=== PATIENT | female | born 1970 | race Caucasian/White ===

== ENCOUNTER 2017-11-03 05:33 | Day surgery (SDC) | payer OTHER ==
--- NOTE | 2017-11-01 10:53 | EKG REPORT ---
SEVERITY:- NORMAL ECG - SINUS RHYTHM : Confirmed by: Ashleigh Stiles 01-Nov-2017 10:53:13
[2017-11-01 12:12] LABS: HEMATOCRIT 40.4 % (36.0-47.0); HEMOGLOBIN 13.2 g/dL (12.0-15.5); HGB HCT DIFFERENCE -0.8; MEAN CORPUSCULAR HEMOGLOBIN 27.6 pg (27.0-33.4); MEAN CORPUSCULAR HGB CONC 32.6 g/dL (32.0-36.0); MEAN CORPUSCULAR VOLUME 85 fl (80-97); RED BLOOD COUNT 4.77 10^6/uL (3.72-5.28); RED CELL DISTRIBUTION WIDTH 14.5 % (11.5-14.0); WHITE BLOOD COUNT 12.4 10^3/uL (4.0-10.5)
[2017-11-01 12:38] LABS: APPEARANCE,URINE CLEAR; BILIRUBIN,URINE NEGATIVE (NEGATIVE); GLUCOSE, URINE NEGATIVE (NEGATIVE); KETONES,URINE NEGATIVE (NEGATIVE); LEUKOCYTE ESTERASE,URINE NEGATIVE (NEGATIVE); NITRITE,URINE NEGATIVE (NEGATIVE); PROTEIN,URINE NEGATIVE (NEGATIVE); UROBILINOGEN,URINE NEGATIVE mg/dL (<2.0)
--- NOTE | 2017-11-01 12:42 | RADIOLOGY REPORT (SQ) ---
EXAM DESCRIPTION: CHEST PA/LATERAL COMPLETED DATE/TIME: 11/01/2017 12:27 pm REASON FOR STUDY: PRE-OP COMPARISON: None. EXAM PARAMETERS: NUMBER OF VIEWS: two views TECHNIQUE: Digital Frontal and Lateral radiographic views of the chest acquired. RADIATION DOSE: NA LIMITATIONS: none FINDINGS: LUNGS AND PLEURA: No opacities, masses or pneumothorax. No pleural effusion. MEDIASTINUM AND HILAR STRUCTURES: No masses or contour abnormalities. HEART AND VASCULAR STRUCTURES: Heart normal size. No evidence for failure. BONES: No acute findings. HARDWARE: None in the chest. OTHER: No other significant finding. IMPRESSION: NO SIGNIFICANT RADIOGRAPHIC FINDING IN THE CHEST. TECHNICAL DOCUMENTATION: JOB ID: [id number] [employer]- All Rights Reserved
[2017-11-01 12:48] LABS: ANION GAP 12 (5-19); BLOOD UREA NITROGEN 19 mg/dL (7-20); CALCIUM 10.1 mg/dL (8.4-10.2); CARBON DIOXIDE 27 mmol/L (22-30); CHLORIDE 102 mmol/L (98-107); CREATININE RESULT 0.75 mg/dL (0.52-1.25); GLUCOSE 90 mg/dL (75-110); POTASSIUM 4.5 mmol/L (3.6-5.0); SODIUM 141.3 mmol/L (137-145)
[2017-11-01 12:52] LABS: BACTERIA,URINE 1+ /HPF
[~2017-11-03 05:33] MED LIST: CEFAZOLIN 1 GM/D5W RTU 1 GM/50 ML RTUPB IV PRN; LACTATED RINGERS 1000 ML IV PRN; LIDOCAINE 0.5% INJ-PF (5 MG/ML) 50 ML SDV SUBCUT PRN
[2017-11-03] MEDS ORDERED: FENTANYL CITRATE INJ/PF 100 MCG/2 ML AMPUL ONE (07:01)
[2017-11-03] MEDS ORDERED: ACETAMINOPHEN 100 ML IV ONE (07:01)
[2017-11-03] MEDS ORDERED: MIDAZOLAM 2 MG/2 ML INJ ONE (07:01)
[2017-11-03] MEDS ORDERED: PROPOFOL INJ 200 MG/20 ML VIAL IV ONE (07:01)
[2017-11-03] MEDS ORDERED: DIPHENHYDRAMINE HCL 50 MG/ML VIAL IV PRN (08:09)
[2017-11-03] MEDS ORDERED: FENTANYL CITRATE INJ/PF 100 MCG/2 ML AMPUL IV PRN ×3 (08:09)
[2017-11-03] MEDS: FENTANYL CITRATE INJ/PF 100 MCG/2 ML AMPUL ONE ×3 (08:35→08:45)
--- NOTE | 2017-11-03 08:43 | OPERATIVE REPORT E ---
Operative Report NAME: TARYN TILLEY : 1970 AGE: 46Y DATE OF SURGERY: 11/03/2017 ROOM: PREOPERATIVE DIAGNOSIS: Stress urinary incontinence. POSTOPERATIVE DIAGNOSIS: Stress urinary incontinence. PROCEDURE: Obtryx transobturator sling placement and cystoscopy. SURGEON: THIERRY DUMONT M.D. ANESTHESIA: General endotracheal. COMPLICATIONS: None. FINDINGS: That of a normal bladder and normal urethra. No evidence of involvement in the cavity. There are normal vaginal sulci. Normal EUA. INDICATIONS FOR PROCEDURE: The patient had what initially appeared to be a mixed incontinence picture but ultimately upon cystometrics demonstrated primary stress urinary incontinence mode of incontinence. She desired attempt at definitive therapy. The usual risks of bleeding, infection, anesthesia, damage to organs and tissues have been discussed with the patient. The specific complications of mesh usage including mesh erosion and removal, pain as well as urinary retention and/or incomplete treatment of incontinence have been discussed with the patient. No guarantees or warranties regarding future outcome of this procedure were made to the patient. PROCEDURE: The patient was taken to the operating room and placed in the modified lithotomy position, and adequate anesthesia was ascertained. She was prepped and draped for a transobturator sling. EUA was performed. Bladder was drained with sterile technique. Sub/midurethral incision was made in the vagina anteriorly and extended approximately 2 cm and the periurethral tissue was dissected using sharp and blunt dissection to the area behind the rami. A stab incision was made at the clitoral level in the obturator space just beside the rami and the trocar was replaced under direct palpation and the slings were attached and brought down out the incision. Cystoscopy ensued at this point, demonstrating intact bladder and urethra. Robles catheter was reinserted and the sling was tightened into a tension-free fashion and secured by a large Alisa clamp. The sleeves were removed. *------* were removed. Good hemostasis was noted. The vagina was then closed with a 3-0 Vicryl stitch in a running interlocking fashion, the excess sling was removed, and the gluteal sites were closed *------* glue. At the completion of the procedure all instruments were removed. The patient was awakened and taken to the recovery room in stable condition. DICTATING PHYSICIAN: THIERRY DUMONT M.D. [id number] PHY#: [id number] ID: [id number] JOB#: [id number] ACCT: [id number] cc:THIERRY DUMONT M.D. >
[2017-11-03] MEDS ORDERED: MORPHINE INJ 4 MG DOSE (EDIT ROUTE) INJ PRN (09:30)
[2017-11-03] MEDS ORDERED: PROMETHAZINE HCL INJ 25 MG/1 ML VIAL IM PRN (09:30)
[2017-11-03] MEDS ORDERED: OXYCODONE-ACETAMINOPHEN 5-325 MG TABLET PO PRN (09:30)
[2017-11-03] MEDS ORDERED: HYDROCODONE/ACETAMINOPHEN 5-325 MG TABLET ONE (09:36)
[2017-11-03 11:04] VITALS: BP 111/71
[2017-11-03] MEDS ORDERED: SUCCINYLCHOLINE CHLORIDE INJ 200 MG/10 ML VIAL ONE (13:32)
[2017-11-03] MEDS ORDERED: PHENYLEPHRINE HCL INJ/PF 10 MG/1 ML SDV ONE (13:32)
[2017-11-03] MEDS ORDERED: GLYCOPYRROLATE INJ 0.4 MG/2 ML VIAL ONE (13:32)
[2017-11-03] MEDS ORDERED: ONDANSETRON HCL INJ/PF 4 MG/2 ML SDV ONE (13:32)
[2017-11-03] MEDS ORDERED: LIDOCAINE 2% INJ-PF (20 MG/ML) 2 ML AMPUL ONE (13:32)
[2017-11-03] MEDS ORDERED: DEXAMETHASONE SOD PHOSPHATE INJ 4 MG/1 ML VIAL ONE (13:32)
[2017-11-03] MEDS ORDERED: IBUPROFEN 800 MG TABLET PO SCH (14:00)
== END 2017-11-03 10:55 | disposition home or self-care (01) ==
LOC: OROUT 05:33
PROVIDERS: ATTEND Specialist
PROC: 0TSD0ZZ Reposition Urethra, Open Approach (ICD-10-PCS; principal; 2017-11-03 07:15)
DX: N39.3 Stress incontinence (female) (male) (principal); I10 Essential (primary) hypertension; E07.9 Disorder of thyroid, unspecified; K21.9 Gastro-esophageal reflux disease without esophagitis; D64.9 Anemia, unspecified; Z88.8 Allergy status to other drugs, medicaments and biological substances; Z79.899 Other long term (current) drug therapy
CPT/HCPCS: 93005; 86900; 86901; 36415; 86850; 85027; 81025; 80048; 81001; 71020; 93010; 57288; C1763; J2250; J0690; J1100; J3010; J2370; J0330; J2405; J2704; J0131; J3490; 860